=== PATIENT | male | born 1940 | race Caucasian/White ===

== ENCOUNTER 2020-10-20 15:18 | Inpatient (IN) | payer MEDICARE ==
[2020-10-20] MEDS ORDERED: Furosemide 40 MG/4 ML VIAL SLOW IVP SCH (15:30)
[2020-10-20 15:44] VITALS: BMI 32.9
[2020-10-20 15:47] LABS: #Eosinphils 0.2 thou/uL (0.0-0.7); #Lymphocytes 1.4 thou/uL (1.20-3.40); #Monocytes 0.7 thou/uL (0.11-0.59); #Neutrophils 10.2 thou/uL (1.40-6.50); %Basophils 0.1 % (0.0-1.0); %Eosinophils 1.4 % (0.0-10.0); %Lymphocytes 10.8 % (21.0-51.0); %Monocytes 5.8 % (0.0-10.0); %Neutrophils 81.9 % (42.0-75.0); Hemoglobin 8.6 g/dL (14.0-18.0); Mean Corpuscular Hemoglobin 32.6 pg (27.0-31.0); Mean Corpuscular Volume 95.8 fL (78.0-98.0); Mean Platelet Volume 7.6 fL (7.4-10.4); Platelet Count 166 thou/uL (130-400); RBC Distribution Width 13.7 % (11.5-14.5); Red Blood Cell (RBC) Count 2.62 mill/uL (4.70-6.10); White Blood Cell (WBC) Count 12.5 thou/uL (4.8-10.8)
[2020-10-20 16:08] LABS: Anion Gap 12 mmol/L (10-20); BUN (Urea Nitrogen) 44 mg/dL (8.4-25.7); Calc. Creatinine Clearance 36 mL/min (70-130); Calcium 8.7 mg/dL (7.8-10.44); Carbon Dioxide 21 mmol/L (23-31); Chloride 113 mmol/L (98-107); Glucose 105 mg/dL (83-110); Magnesium 2.2 mg/dL (1.6-2.6); Potassium 4.4 mmol/L (3.5-5.1); Sodium 142 mmol/L (136-145)
[2020-10-20] MEDS: Atenolol 50 MG TAB PO SCH ×2 (16:33→16:45)
[2020-10-20] MEDS: cloNIDine 0.1 MG TAB PO PRN (16:33)
[2020-10-20] MEDS ORDERED: Ondansetron PF 4 MG/2 ML Vial IVP PRN (16:36)
[2020-10-20] MEDS ORDERED: Dextrose 50% Abboject 50 ML SYRINGE SLOW IVP PRN (16:36)
[2020-10-20] MEDS ORDERED: Dextrose 5% in Water 1,000 ML IV PRN (16:36)
[2020-10-20] MEDS ORDERED: HumaLOG 300 UNITS/3 ML VIAL SC PRN (16:36)
[2020-10-20] MEDS: Atorvastatin Calcium 40 MG TAB PO SCH (22:03)
[2020-10-20] MEDS: Heparin 5,000 UNITS/ML VIAL SC SCH (22:03)
[2020-10-20] MEDS: Timolol 0.25% Ophth Soln 5 ml Bottle EA EYE SCH (22:04)
[2020-10-20] MEDS: cloNIDine 0.2 MG TAB PO SCH (22:04)
[2020-10-20] MEDS: Amlodipine 5 MG TAB PO SCH (22:05)
[2020-10-21 04:28] LABS: #Eosinphils 0.2 thou/uL (0.0-0.7); #Lymphocytes 1.4 thou/uL (1.20-3.40); #Monocytes 0.7 thou/uL (0.11-0.59); #Neutrophils 8.6 thou/uL (1.40-6.50); %Basophils 0.4 % (0.0-1.0); %Eosinophils 1.5 % (0.0-10.0); %Lymphocytes 13.1 % (21.0-51.0); %Monocytes 6.5 % (0.0-10.0); %Neutrophils 78.5 % (42.0-75.0); Hemoglobin 7.2 g/dL (14.0-18.0); Mean Corpuscular HGB CONC 33.8 g/dL (32.0-36.0); Mean Corpuscular Hemoglobin 32.7 pg (27.0-31.0); Mean Corpuscular Volume 96.6 fL (78.0-98.0); Mean Platelet Volume 7.9 fL (7.4-10.4); Platelet Count 152 thou/uL (130-400); RBC Distribution Width 13.7 % (11.5-14.5); Red Blood Cell (RBC) Count 2.22 mill/uL (4.70-6.10); White Blood Cell (WBC) Count 10.9 thou/uL (4.8-10.8)
[2020-10-21 04:52] LABS: Anion Gap 11 mmol/L (10-20); BUN (Urea Nitrogen) 45 mg/dL (8.4-25.7); Calc. Creatinine Clearance 37 mL/min (70-130); Calcium 8.5 mg/dL (7.8-10.44); Carbon Dioxide 20 mmol/L (23-31); Chloride 112 mmol/L (98-107); Glucose 91 mg/dL (83-110); Iron 54 ug/dL (65-175); Iron Binding Capacity, Total 263 mcg/dL (261-462); Potassium 4.1 mmol/L (3.5-5.1); Sodium 139 mmol/L (136-145)
[2020-10-21 05:00] LABS: Bilirubin Negative (Negative); Blood, Urine Negative (Negative); Clarity Clear (Clear); Glucose, Urine (Dipstick) Normal (Negative); Ketone, Urine Negative (Negative); Leukocyte Negative Leu/uL (Negative); Nitrite Negative (Negative); Protein, Urine (Dipstick) 70 mg/dL (Neg-Trace); RBC/HPF 0-3 HPF (0-3); Specific Gravity, Urine 1.013 (1.002-1.036); Squamous Epithelial 0-3 HPF (0-3); Urobilinogen Normal mg/dL (Less than 2); pH, Urine 5.5 (5.0-9.0)
[2020-10-21 05:11] LABS: Ferritin 82.76 ng/mL (22-322); Thyroid Stimulating Hormone 1.4536 uIU/mL (0.35-4.94)
[2020-10-21 05:18] LABS: Bacteria/HPF None Seen HPF (None Seen); Sperm/HPF Rare HPF (None Seen)
[2020-10-21] MEDS: Furosemide 40 MG/4 ML VIAL SLOW IVP SCH ×2 (05:45→14:37)
[2020-10-21] MEDS: Heparin 5,000 UNITS/ML VIAL SC SCH ×3 (08:41→20:07)
[2020-10-21] MEDS: Amlodipine 5 MG TAB PO SCH ×2 (08:42→20:02)
[2020-10-21] MEDS: cloNIDine 0.2 MG TAB PO SCH (08:42)
[2020-10-21] MEDS: Aspirin 81 mg Enteric Coated Tablet PO SCH (08:42)
[2020-10-21] MEDS ORDERED: Carvedilol 6.25 MG TAB PO SCH (09:00)
[2020-10-21] MEDS ORDERED: Atenolol 50 MG TAB PO SCH (09:00)
[2020-10-21] MEDS: Timolol 0.25% Ophth Soln 5 ml Bottle EA EYE SCH ×3 (09:09→20:06)
[2020-10-21] MEDS: HumaLOG 300 UNITS/3 ML VIAL SC PRN (11:24)
[2020-10-21] MEDS: Iron, Sodium Ferric Gluconate 250 MG in Sodium Chloride 0.9% 250 ML 250 ML IVPB SCH ×2 (11:26→23:50)
[2020-10-21] MEDS ORDERED: Furosemide 40 MG/4 ML VIAL SLOW IVP SCH (20:00)
[2020-10-21] MEDS: cloNIDine 0.1 MG TAB PO SCH (20:03)
[2020-10-21] MEDS: Carvedilol 3.125 MG TAB PO SCH (20:03)
[2020-10-21] MEDS: Atorvastatin Calcium 40 MG TAB PO SCH (20:04)
[2020-10-22 04:48] LABS: #Eosinphils 0.2 thou/uL (0.0-0.7); #Lymphocytes 1.5 thou/uL (1.20-3.40); #Monocytes 0.8 thou/uL (0.11-0.59); #Neutrophils 8.2 thou/uL (1.40-6.50); %Basophils 0.3 % (0.0-1.0); %Eosinophils 1.6 % (0.0-10.0); %Lymphocytes 13.7 % (21.0-51.0); %Monocytes 7.5 % (0.0-10.0); %Neutrophils 76.9 % (42.0-75.0); Hemoglobin 7.5 g/dL (14.0-18.0); Mean Corpuscular HGB CONC 34.5 g/dL (32.0-36.0); Mean Corpuscular Volume 95.7 fL (78.0-98.0); Mean Platelet Volume 8.2 fL (7.4-10.4); Platelet Count 145 thou/uL (130-400); RBC Distribution Width 13.4 % (11.5-14.5); Red Blood Cell (RBC) Count 2.27 mill/uL (4.70-6.10); White Blood Cell (WBC) Count 10.6 thou/uL (4.8-10.8)
[2020-10-22] MEDS: Furosemide 40 MG/4 ML VIAL SLOW IVP SCH ×2 (05:26→14:54)
[2020-10-22 05:30] LABS: ALT (SGPT) 23 U/L (8-55); AST (SGOT) 15 U/L (5-34); Albumin 3.4 g/dL (3.4-4.8); Alkaline Phosphatase 80 U/L (40-110); Anion Gap 12 mmol/L (10-20); BUN (Urea Nitrogen) 46 mg/dL (8.4-25.7); Bilirubin, Total 0.8 mg/dL (0.2-1.2); Calc. Creatinine Clearance 34 mL/min (70-130); Calcium 8.7 mg/dL (7.8-10.44); Carbon Dioxide 23 mmol/L (23-31); Chloride 109 mmol/L (98-107); Globulin 2.4 g/dL (2.4-3.5); Glucose 121 mg/dL (83-110); Potassium 4.1 mmol/L (3.5-5.1); Protein, Total 5.8 g/dL (5.8-8.1); Sodium 140 mmol/L (136-145)
[2020-10-22] MEDS: Carvedilol 3.125 MG TAB PO SCH (08:04)
[2020-10-22] MEDS: Heparin 5,000 UNITS/ML VIAL SC SCH ×3 (08:04→20:54)
[2020-10-22] MEDS: Timolol 0.25% Ophth Soln 5 ml Bottle EA EYE SCH ×2 (08:04→21:02)
[2020-10-22] MEDS: Aspirin 81 mg Enteric Coated Tablet PO SCH (08:04)
[2020-10-22] MEDS: cloNIDine 0.1 MG TAB PO SCH (08:04)
[2020-10-22] MEDS: Amlodipine 5 MG TAB PO SCH ×2 (08:04→20:55)
[2020-10-22] MEDS: cloNIDine 0.1 MG TAB PO PRN (11:14)
[2020-10-22] MEDS: HumaLOG 300 UNITS/3 ML VIAL SC PRN (11:15)
[2020-10-22] MEDS ORDERED: Melatonin 3 MG TAB PO PRN (18:04)
[2020-10-22] MEDS: Atorvastatin Calcium 40 MG TAB PO SCH (20:55)
[2020-10-23 04:37] LABS: #Eosinphils 0.1 thou/uL (0.0-0.7); #Lymphocytes 1.4 thou/uL (1.20-3.40); #Monocytes 0.9 thou/uL (0.11-0.59); #Neutrophils 8.6 thou/uL (1.40-6.50); %Basophils 0.2 % (0.0-1.0); %Lymphocytes 12.4 % (21.0-51.0); %Monocytes 8.3 % (0.0-10.0); %Neutrophils 78.1 % (42.0-75.0); Hemoglobin 7.9 g/dL (14.0-18.0); Mean Corpuscular HGB CONC 34.6 g/dL (32.0-36.0); Mean Corpuscular Hemoglobin 33.2 pg (27.0-31.0); Mean Platelet Volume 7.7 fL (7.4-10.4); Platelet Count 165 thou/uL (130-400); RBC Distribution Width 13.3 % (11.5-14.5); Red Blood Cell (RBC) Count 2.37 mill/uL (4.70-6.10); White Blood Cell (WBC) Count 10.9 thou/uL (4.8-10.8)
[2020-10-23 05:00] LABS: Anion Gap 13 mmol/L (10-20); BUN (Urea Nitrogen) 45 mg/dL (8.4-25.7); Calc. Creatinine Clearance 32 mL/min (70-130); Calcium 8.7 mg/dL (7.8-10.44); Carbon Dioxide 24 mmol/L (23-31); Cardiac Risk 3.1 (Less than 4.5); Chloride 107 mmol/L (98-107); Cholesterol 90 mg/dl (< 200 Desired); Glucose 116 mg/dL (83-110); HDL Cholesterol 29 mg/dL (>60 Neg Risk); LDL Cholesterol, Calculated 43 mg/dL; Potassium 3.7 mmol/L (3.5-5.1); Sodium 140 mmol/L (136-145); Triglycerides 88 mg/dL (Less than 150)
[2020-10-23] MEDS: cloNIDine 0.1 MG TAB PO PRN ×2 (05:21→07:10)
[2020-10-23] MEDS: Furosemide 40 MG/4 ML VIAL SLOW IVP SCH ×2 (05:21→15:22)
[2020-10-23] MEDS: Amlodipine 5 MG TAB PO SCH ×2 (07:09→21:39)
[2020-10-23] MEDS: Aspirin 81 mg Enteric Coated Tablet PO SCH (07:09)
[2020-10-23] MEDS: Heparin 5,000 UNITS/ML VIAL SC SCH ×3 (07:10→21:38)
[2020-10-23] MEDS: Timolol 0.25% Ophth Soln 5 ml Bottle EA EYE SCH ×2 (07:10→21:40)
[2020-10-23] MEDS: hydrALAZINE 20 MG/ML VIAL SLOW IVP PRN (09:19)
[2020-10-23] MEDS: traMADol HCl 50 MG TAB PO PRN (09:22)
[2020-10-23] MEDS: Acetaminophen 325 MG TAB PO PRN (11:30)
[2020-10-23] MEDS: hydrALAZINE 10 MG TAB PO SCH ×2 (15:23→21:39)
[2020-10-23] MEDS: Atorvastatin Calcium 40 MG TAB PO SCH (21:39)
[2020-10-24 05:08] LABS: #Eosinphils 0.1 thou/uL (0.0-0.7); #Lymphocytes 1.1 thou/uL (1.20-3.40); #Neutrophils 11.1 thou/uL (1.40-6.50); %Basophils 0.2 % (0.0-1.0); %Eosinophils 0.7 % (0.0-10.0); %Lymphocytes 8.4 % (21.0-51.0); %Monocytes 7.2 % (0.0-10.0); %Neutrophils 83.6 % (42.0-75.0); Hemoglobin 8.7 g/dL (14.0-18.0); Mean Corpuscular HGB CONC 33.6 g/dL (32.0-36.0); Mean Corpuscular Hemoglobin 32.1 pg (27.0-31.0); Mean Corpuscular Volume 95.7 fL (78.0-98.0); Mean Platelet Volume 7.8 fL (7.4-10.4); Platelet Count 193 thou/uL (130-400); RBC Distribution Width 13.1 % (11.5-14.5); Red Blood Cell (RBC) Count 2.69 mill/uL (4.70-6.10); White Blood Cell (WBC) Count 13.3 thou/uL (4.8-10.8)
[2020-10-24 05:36] LABS: Anion Gap 12 mmol/L (10-20); BUN (Urea Nitrogen) 46 mg/dL (8.4-25.7); Calc. Creatinine Clearance 31 mL/min (70-130); Calcium 8.8 mg/dL (7.8-10.44); Carbon Dioxide 26 mmol/L (23-31); Chloride 106 mmol/L (98-107); Glucose 127 mg/dL (83-110); Potassium 3.9 mmol/L (3.5-5.1); Sodium 140 mmol/L (136-145)
[2020-10-24] MEDS: Furosemide 40 MG/4 ML VIAL SLOW IVP SCH ×2 (05:39→15:00)
[2020-10-24] MEDS: hydrALAZINE 10 MG TAB PO SCH (07:18)
[2020-10-24] MEDS: Aspirin 81 mg Enteric Coated Tablet PO SCH (07:18)
[2020-10-24] MEDS: Amlodipine 5 MG TAB PO SCH ×2 (07:19→21:30)
[2020-10-24] MEDS: Timolol 0.25% Ophth Soln 5 ml Bottle EA EYE SCH ×2 (07:20→23:02)
[2020-10-24] MEDS: Heparin 5,000 UNITS/ML VIAL SC SCH ×3 (07:20→21:32)
[2020-10-24] MEDS: hydrALAZINE 25 MG TAB PO SCH ×3 (08:51→21:30)
[2020-10-24] MEDS: HumaLOG 300 UNITS/3 ML VIAL SC PRN (11:41)
[2020-10-24] MEDS: hydrALAZINE 20 MG/ML VIAL SLOW IVP PRN (16:50)
[2020-10-24] MEDS ORDERED: Terazosin HCl 1 MG CAP PO SCH (21:00)
[2020-10-24] MEDS: Acetaminophen 325 MG TAB PO PRN (21:29)
[2020-10-24] MEDS: Atorvastatin Calcium 40 MG TAB PO SCH (21:31)
[2020-10-25 04:40] LABS: #Eosinphils 0.1 thou/uL (0.0-0.7); #Lymphocytes 1.1 thou/uL (1.20-3.40); #Monocytes 0.9 thou/uL (0.11-0.59); %Basophils 0.4 % (0.0-1.0); %Eosinophils 0.8 % (0.0-10.0); %Lymphocytes 10.6 % (21.0-51.0); %Monocytes 9.2 % (0.0-10.0); Hemoglobin 8.6 g/dL (14.0-18.0); Mean Corpuscular HGB CONC 34.6 g/dL (32.0-36.0); Mean Corpuscular Volume 95.5 fL (78.0-98.0); Mean Platelet Volume 7.3 fL (7.4-10.4); Platelet Count 151 thou/uL (130-400); RBC Distribution Width 13.3 % (11.5-14.5); Red Blood Cell (RBC) Count 2.59 mill/uL (4.70-6.10); White Blood Cell (WBC) Count 10.2 thou/uL (4.8-10.8)
[2020-10-25 05:04] LABS: Anion Gap 11 mmol/L (10-20); BUN (Urea Nitrogen) 52 mg/dL (8.4-25.7); Calc. Creatinine Clearance 29 mL/min (70-130); Calcium 8.8 mg/dL (7.8-10.44); Carbon Dioxide 26 mmol/L (23-31); Chloride 107 mmol/L (98-107); Glucose 130 mg/dL (83-110); Potassium 3.4 mmol/L (3.5-5.1); Sodium 141 mmol/L (136-145)
[2020-10-25] MEDS: Furosemide 40 MG/4 ML VIAL SLOW IVP SCH (05:23)
[2020-10-25] MEDS ORDERED: Potassium Chloride 20 MEQ TAB PO SCH (09:15)
[2020-10-25] MEDS ORDERED: Furosemide 40 MG/4 ML VIAL FS SCH (09:30)
[2020-10-25] MEDS: Aspirin 81 mg Enteric Coated Tablet PO SCH (09:41)
[2020-10-25] MEDS: traMADol HCl 50 MG TAB PO PRN (09:42)
[2020-10-25] MEDS: Amlodipine 5 MG TAB PO SCH ×2 (09:45→20:37)
[2020-10-25] MEDS: Timolol 0.25% Ophth Soln 5 ml Bottle EA EYE SCH ×2 (09:54→20:38)
[2020-10-25] MEDS: Heparin 5,000 UNITS/ML VIAL SC SCH ×3 (09:54→20:37)
[2020-10-25] MEDS: hydrALAZINE 25 MG TAB PO SCH ×3 (10:36→20:37)
[2020-10-25] MEDS: HumaLOG 300 UNITS/3 ML VIAL SC PRN ×2 (11:56→18:22)
[2020-10-25] MEDS: Furosemide 40 MG/4 ML VIAL FS SCH (15:16)
[2020-10-25] MEDS ORDERED: predniSONE 20 MG TAB PO SCH (18:30)
[2020-10-25] MEDS: Acetaminophen 500 MG TAB PO SCH (20:36)
[2020-10-25] MEDS: Atorvastatin Calcium 40 MG TAB PO SCH (20:37)
[2020-10-25] MEDS: Terazosin HCl 1 MG CAP PO SCH (20:38)
[2020-10-26 05:21] LABS: Anion Gap 14 mmol/L (10-20); BUN (Urea Nitrogen) 56 mg/dL (8.4-25.7); Calc. Creatinine Clearance 27 mL/min (70-130); Carbon Dioxide 25 mmol/L (23-31); Chloride 106 mmol/L (98-107); Glucose 209 mg/dL (83-110); Magnesium 2.2 mg/dL (1.6-2.6); Potassium 4.2 mmol/L (3.5-5.1); Sodium 141 mmol/L (136-145)
[2020-10-26] MEDS: Furosemide 40 MG/4 ML VIAL FS SCH ×2 (05:43→16:08)
[2020-10-26] MEDS: HumaLOG 300 UNITS/3 ML VIAL SC PRN ×3 (05:44→16:48)
[2020-10-26] MEDS: Amlodipine 5 MG TAB PO SCH ×2 (08:54→21:48)
[2020-10-26] MEDS: hydrALAZINE 25 MG TAB PO SCH ×3 (08:54→21:46)
[2020-10-26] MEDS: predniSONE 20 MG TAB PO SCH (08:54)
[2020-10-26] MEDS: Aspirin 81 mg Enteric Coated Tablet PO SCH (08:55)
[2020-10-26] MEDS: Timolol 0.25% Ophth Soln 5 ml Bottle EA EYE SCH ×2 (08:55→21:55)
[2020-10-26] MEDS: Acetaminophen 500 MG TAB PO SCH ×3 (09:01→21:45)
[2020-10-26] MEDS: Heparin 5,000 UNITS/ML VIAL SC SCH ×3 (09:07→21:54)
[2020-10-26] MEDS: Terazosin HCl 1 MG CAP PO SCH (21:45)
[2020-10-26] MEDS: Atorvastatin Calcium 40 MG TAB PO SCH (21:48)
[2020-10-26] MEDS: Lantus 1000 UNITS/10 ML VIAL SC SCH (21:52)
[2020-10-27 05:10] LABS: Anion Gap 13 mmol/L (10-20); BUN (Urea Nitrogen) 62 mg/dL (8.4-25.7); Calc. Creatinine Clearance 26 mL/min (70-130); Carbon Dioxide 25 mmol/L (23-31); Chloride 107 mmol/L (98-107); Glucose 139 mg/dL (83-110); Magnesium 2.4 mg/dL (1.6-2.6); Potassium 3.6 mmol/L (3.5-5.1); Sodium 141 mmol/L (136-145)
[2020-10-27] MEDS: Sodium Chloride 0.9% 1,000 ML IV SCH ×2 (09:19→23:27)
[2020-10-27] MEDS: Aspirin 81 mg Enteric Coated Tablet PO SCH (09:21)
[2020-10-27] MEDS: hydrALAZINE 25 MG TAB PO SCH ×3 (09:21→22:05)
[2020-10-27] MEDS: Amlodipine 5 MG TAB PO SCH ×2 (09:22→22:08)
[2020-10-27] MEDS: Lantus 1000 UNITS/10 ML VIAL SC SCH ×2 (09:22→22:10)
[2020-10-27] MEDS: predniSONE 20 MG TAB PO SCH (09:22)
[2020-10-27] MEDS: Heparin 5,000 UNITS/ML VIAL SC SCH ×3 (09:23→22:08)
[2020-10-27] MEDS: Acetaminophen 500 MG TAB PO SCH ×3 (09:23→22:07)
[2020-10-27] MEDS: Timolol 0.25% Ophth Soln 5 ml Bottle EA EYE SCH ×2 (09:29→22:04)
[2020-10-27] MEDS: HumaLOG 300 UNITS/3 ML VIAL SC PRN ×2 (14:07→17:22)
[2020-10-27] MEDS: Terazosin HCl 1 MG CAP PO SCH (22:07)
[2020-10-27] MEDS: Atorvastatin Calcium 40 MG TAB PO SCH (22:08)
[2020-10-28] MEDS: predniSONE 20 MG TAB PO SCH (08:19)
[2020-10-28] MEDS: Acetaminophen 500 MG TAB PO SCH ×3 (08:19→21:32)
[2020-10-28] MEDS: hydrALAZINE 25 MG TAB PO SCH ×3 (08:20→21:34)
[2020-10-28] MEDS: Amlodipine 5 MG TAB PO SCH ×2 (08:20→21:37)
[2020-10-28] MEDS: Aspirin 81 mg Enteric Coated Tablet PO SCH (08:20)
[2020-10-28] MEDS: Timolol 0.25% Ophth Soln 5 ml Bottle EA EYE SCH ×2 (08:21→21:36)
[2020-10-28] MEDS: Heparin 5,000 UNITS/ML VIAL SC SCH ×3 (08:24→21:34)
[2020-10-28] MEDS: Lantus 1000 UNITS/10 ML VIAL SC SCH ×2 (08:25→21:33)
[2020-10-28] MEDS: HumaLOG 300 UNITS/3 ML VIAL SC PRN ×2 (12:04→18:20)
[2020-10-28] MEDS: Sodium Chloride 0.9% 1,000 ML IV SCH (13:32)
[2020-10-28] MEDS: Atorvastatin Calcium 40 MG TAB PO SCH (21:33)
[2020-10-28] MEDS: Terazosin HCl 1 MG CAP PO SCH (21:35)
[2020-10-29 04:54] LABS: Anion Gap 11 mmol/L (10-20); BUN (Urea Nitrogen) 62 mg/dL (8.4-25.7); Calc. Creatinine Clearance 31 mL/min (70-130); Calcium 8.4 mg/dL (7.8-10.44); Carbon Dioxide 25 mmol/L (23-31); Chloride 111 mmol/L (98-107); Glucose 114 mg/dL (83-110); Potassium 3.5 mmol/L (3.5-5.1); Sodium 143 mmol/L (136-145)
[2020-10-29 06:05] LABS: Magnesium 2.3 mg/dL (1.6-2.6)
[2020-10-29] MEDS: Amlodipine 5 MG TAB PO SCH (09:46)
[2020-10-29] MEDS: Aspirin 81 mg Enteric Coated Tablet PO SCH (09:46)
[2020-10-29] MEDS: predniSONE 20 MG TAB PO SCH (09:46)
[2020-10-29] MEDS: hydrALAZINE 25 MG TAB PO SCH (09:46)
[2020-10-29] MEDS: Timolol 0.25% Ophth Soln 5 ml Bottle EA EYE SCH (09:47)
[2020-10-29] MEDS: Heparin 5,000 UNITS/ML VIAL SC SCH (09:48)
[2020-10-29] MEDS: Lantus 1000 UNITS/10 ML VIAL SC SCH (09:49)
[2020-10-29] MEDS: HumaLOG 300 UNITS/3 ML VIAL SC PRN (15:06)
[2020-10-29 15:28] VITALS: BP 158/70; TEMP 98
== END 2020-10-29 15:25 | disposition home or self-care (01) | DRG 291 ==
LOC: 2NO 15:18
PROVIDERS: ADMIT Internal Medicine; ATTEND Family Medicine
DX: I13.0 Hypertensive heart and chronic kidney disease with heart failure and stage 1 through stage 4 chronic kidney disease, or unspecified chronic kidney disease (principal); I50.33 Acute on chronic diastolic (congestive) heart failure; N18.4 Chronic kidney disease, stage 4 (severe); N17.9 Acute kidney failure, unspecified; E87.2 Acidosis; Z20.822 Contact with and (suspected) exposure to COVID-19; E11.22 Type 2 diabetes mellitus with diabetic chronic kidney disease; M10.9 Gout, unspecified; I16.0 Hypertensive urgency; D63.1 Anemia in chronic kidney disease; D50.9 Iron deficiency anemia, unspecified; E78.5 Hyperlipidemia, unspecified; H40.9 Unspecified glaucoma; D72.829 Elevated white blood cell count, unspecified; R00.1 Bradycardia, unspecified; I25.110 Atherosclerotic heart disease of native coronary artery with unstable angina pectoris; E78.00 Pure hypercholesterolemia, unspecified; T46.5X5A Adverse effect of other antihypertensive drugs, initial encounter; Z88.8 Allergy status to other drugs, medicaments and biological substances; Z79.84 Long term (current) use of oral hypoglycemic drugs; Z79.899 Other long term (current) drug therapy; Z98.49 Cataract extraction status, unspecified eye
CPT/HCPCS: 36415; 36416; 76770; 80048; 80053; 80061; 81001; 82274; 82607; 82728; 82746; 83036; 83540; 83550; 83735; 83880; 84443; 84550; 85025; 93306; 93798; J0360; J1644; J1815; J1940; J2916; J7050; J7512

== ENCOUNTER 2024-11-30 22:36 | Observation (INO) | payer MEDICARE ==
[2024-11-30 23:33] LABS: #Basophils Less than 0.03 10x3/uL (0.0-0.2); #Eosinophils 0.03 10x3/uL (0.0-0.7); #Monocytes 1.17 10x3/uL (0.11-0.59); #Neutrophils 11.72 10x3/uL (1.40-6.50); %Basophils 0.1 % (0.0-1.0); %Eosinophils 0.2 % (0.0-10.0); %Lymphocytes 7.7 % (21.0-51.0); %Monocytes 8.3 % (0.0-10.0); %Neutrophils 83.1 % (42.0-75.0); Hematocrit 28.0 % (42.0-52.0); Hemoglobin 8.9 g/dL (14.0-18.0); Mean Corpuscular Hemoglobin 30.6 pg (27.0-31.0); Mean Corpuscular Volume 96.2 fL (78.0-98.0); Platelet Count 132 10x3/uL (130-400); Red Blood Cell (RBC) Count 2.91 mill/uL (4.70-6.10); White Blood Cell (WBC) Count 14.11 10x3/uL (4.8-10.8)
[2024-11-30 23:40] LABS: ALT (SGPT) 11 U/L (Less than 45); AST (SGOT) 19 U/L (11-34); Albumin 3.4 g/dL (3.1-4.5); Alkaline Phosphatase 69 U/L (40-110); Anion Gap 16 mmol/L (10-20); BUN (Urea Nitrogen) 56 mg/dL (8.4-25.7); Bilirubin, Total 0.5 mg/dL (0.3-1.2); Calc. Creatinine Clearance 0 mL/min (70-130); Calcium 8.9 mg/dL (7.8-10.44); Carbon Dioxide 22 mmol/L (23-31); Chloride 107 mmol/L (98-107); Globulin 2.8 g/dL (2.4-3.5); Glucose 147 mg/dL (83-110); Potassium 3.6 mmol/L (3.5-5.1); Sodium 141 mmol/L (136-145)
[2024-11-30 23:47] LABS: Platelet Adequacy Comment Platelets Normal; Polychromasia SLIGHT = 2-3 cells HPF (0-2); RBC Morphology Within Normal Limits
[2024-12-01] MEDS ORDERED: Nitroglycerin 2% Ointment 1 INCH/1 GM Packet ONE (00:07)
[2024-12-01] MEDS ORDERED: Calcium Carbonate 500 MG ChewTAB PO PRN (01:40)
[2024-12-01] MEDS ORDERED: Senokot S 8.6-50 MG TAB PO PRN (01:40)
[2024-12-01] MEDS ORDERED: Nitroglycerin 0.4 MG TAB (25 Tab Bottle) SL PRN (01:42)
[2024-12-01 01:51] LABS: Bacteria/HPF None Seen HPF (None Seen); CAUTI Indications for Culture Pelvic or flank pain; Glucose, Urine (Dipstick) 70 mg/dL (Negative); Leukocyte Negative Leu/uL (Negative); Protein, Urine (Dipstick) 20 mg/dL (Neg-Trace); RBC/HPF None Seen HPF (0-3); Specific Gravity, Urine 1.009 (1.002-1.036); WBC/HPF 0-3 HPF (0-3)
[2024-12-01 01:53] LABS: Urine Culture Reflex No No
[2024-12-01 02:43] VITALS: BMI 28.9
[2024-12-01] MEDS: Isosorbide Mononitrate 60 MG ER.TAB PO SCH (08:51)
[2024-12-01] MEDS: Aspirin 81 mg Enteric Coated Tablet PO SCH (08:52)
[2024-12-01] MEDS: Acetaminophen 325 MG TAB PO PRN (21:24)
[2024-12-02 04:39] LABS: #Basophils Less than 0.03 10x3/uL (0.0-0.2); #Eosinophils 0.07 10x3/uL (0.0-0.7); #Monocytes 0.85 10x3/uL (0.11-0.59); #Neutrophils 8.22 10x3/uL (1.40-6.50); %Basophils 0.2 % (0.0-1.0); %Eosinophils 0.7 % (0.0-10.0); %Lymphocytes 12.5 % (21.0-51.0); %Monocytes 8.1 % (0.0-10.0); %Neutrophils 78.0 % (42.0-75.0); Hematocrit 26.9 % (42.0-52.0); Hemoglobin 8.4 g/dL (14.0-18.0); Mean Corpuscular Hemoglobin 30.3 pg (27.0-31.0); Mean Corpuscular Volume 97.1 fL (78.0-98.0); Platelet Count 149 10x3/uL (130-400); Red Blood Cell (RBC) Count 2.77 mill/uL (4.70-6.10); White Blood Cell (WBC) Count 10.52 10x3/uL (4.8-10.8)
[2024-12-02 05:09] LABS: Anion Gap 14 mmol/L (10-20); BUN (Urea Nitrogen) 54 mg/dL (8.4-25.7); Calc. Creatinine Clearance 21 mL/min (70-130); Calcium 8.6 mg/dL (7.8-10.44); Carbon Dioxide 24 mmol/L (23-31); Chloride 107 mmol/L (98-107); Glucose 100 mg/dL (83-110); Potassium 3.6 mmol/L (3.5-5.1); Sodium 141 mmol/L (136-145)
[2024-12-02 15:16] VITALS: BP 146/64; TEMP 97.9
== END 2024-12-02 16:25 | disposition home or self-care (01) ==
LOC: ERS 22:36 → 2SE 12-01 00:38
PROVIDERS: ADMIT Internal Medicine; ATTEND Internal Medicine
PROC: B24BZZZ Ultrasonography of Heart with Aorta (ICD-10-PCS; principal; 2024-12-01)
DX: R07.89 Other chest pain (principal); I13.0 Hypertensive heart and chronic kidney disease with heart failure and stage 1 through stage 4 chronic kidney disease, or unspecified chronic kidney disease; E11.22 Type 2 diabetes mellitus with diabetic chronic kidney disease; N18.4 Chronic kidney disease, stage 4 (severe); I50.22 Chronic systolic (congestive) heart failure; D63.1 Anemia in chronic kidney disease; E78.5 Hyperlipidemia, unspecified; M10.9 Gout, unspecified; Z88.8 Allergy status to other drugs, medicaments and biological substances; Z79.82 Long term (current) use of aspirin; Z79.899 Other long term (current) drug therapy
CPT/HCPCS: 71045; 78452; 80048; 80053; 81001; 83690; 83880; 84484 ×2; 85025 ×2; 87426; 93005; 93017; 93306; A9502; J2785 ×2; 36415; 96374; G0378

== ENCOUNTER 2025-02-20 07:36 | Emergency (ER) | payer MEDICARE ==
[2025-02-20 08:22] LABS: #Basophils Less than 0.03 10x3/uL (0.0-0.2); #Eosinophils 0.06 10x3/uL (0.0-0.7); #Monocytes 0.83 10x3/uL (0.11-0.59); #Neutrophils 10.00 10x3/uL (1.40-6.50); %Basophils 0.2 % (0.0-1.0); %Eosinophils 0.5 % (0.0-10.0); %Lymphocytes 8.0 % (21.0-51.0); %Monocytes 7.0 % (0.0-10.0); %Neutrophils 83.8 % (42.0-75.0); Hematocrit 31.9 % (42.0-52.0); Hemoglobin 10.4 g/dL (14.0-18.0); Mean Corpuscular Hemoglobin 30.9 pg (27.0-31.0); Mean Corpuscular Volume 94.7 fL (78.0-98.0); Platelet Count 142 10x3/uL (130-400); Red Blood Cell (RBC) Count 3.37 mill/uL (4.70-6.10); White Blood Cell (WBC) Count 11.92 10x3/uL (4.8-10.8)
[2025-02-20] MEDS ORDERED: Nitroglycerin 2% Ointment 1 INCH/1 GM Packet ONE (08:22)
[2025-02-20 08:33] LABS: ALT (SGPT) Less than 7 U/L (Less than 45); AST (SGOT) 16 U/L (11-34); Albumin 3.5 g/dL (3.1-4.5); Alkaline Phosphatase 62 U/L (40-110); Anion Gap 16 mmol/L (10-20); BUN (Urea Nitrogen) 55 mg/dL (8.4-25.7); Bilirubin, Total 0.5 mg/dL (0.3-1.2); Calc. Creatinine Clearance 0 mL/min (70-130); Calcium 8.9 mg/dL (7.8-10.44); Carbon Dioxide 20 mmol/L (23-31); Chloride 112 mmol/L (98-107); Globulin 2.8 g/dL (2.4-3.5); Glucose 132 mg/dL (83-110); Potassium 4.0 mmol/L (3.5-5.1); Sodium 144 mmol/L (136-145)
== END 2025-02-20 10:47 | disposition home or self-care (01) ==
LOC: ERS 07:36
DX: R07.9 Chest pain, unspecified (principal); I13.0 Hypertensive heart and chronic kidney disease with heart failure and stage 1 through stage 4 chronic kidney disease, or unspecified chronic kidney disease; N18.30 Chronic kidney disease, stage 3 unspecified; I50.9 Heart failure, unspecified; I20.9 Angina pectoris, unspecified; E11.9 Type 2 diabetes mellitus without complications; E78.00 Pure hypercholesterolemia, unspecified; Z79.899 Other long term (current) drug therapy
CPT/HCPCS: 71045; 80053; 83690; 83880; 84484; 85025; 93005